=== PATIENT | male | born 1960 | race Caucasian/White ===

== ENCOUNTER → 2020-08-15 13:23 | Outpatient (CLI) | payer OTHER, SELFPAY ==
--- NOTE | ~2020-08-15 | US_ITS ---
EXAMINATION: US venous doppler LE RT DATE: 08/15/2020 13:43 INDICATION: Right lower limb pain and swelling. TECHNIQUE: Grayscale ultrasound images without and with compression and Doppler ultrasound images of the right lower extremity veins were obtained. COMPARISON: None. FINDINGS: The visualized portions of right common femoral vein, profunda (deep) femoral vein, femoral vein, pop liteal vein, peroneal veins, posterior tibial veins, and greater saphenous vein outflow are patent. T here is a 6.5 x 1.5 x 2.7 cm right calf hematoma. IMPRESSION: 1. No deep venous thrombosis. 2. Right calf hematoma. Reviewed, dictated and finalized at location A. RANCE PLAN SPECIALIST
== END ==
PROVIDERS: PCP Family Medicine; Visit Provider Family Medicine
DX: S80.11XA Contusion of right lower leg, initial encounter (principal); X58.XXXA Exposure to other specified factors, initial encounter
CPT/HCPCS: 93971

== ENCOUNTER → 2021-01-11 00:34 | Outpatient (CLI) | payer OTHER, SELFPAY ==
[2021-01-11 21:55] LABS: SARS-CoV-2 RNA PCR Negative
== END ==
PROVIDERS: PCP Family Medicine; Visit Provider Family Medicine
DX: R09.81 Nasal congestion (principal); Z20.822 Contact with and (suspected) exposure to COVID-19
CPT/HCPCS: C9803; U0003; U0005

== ENCOUNTER → 2023-01-11 14:33 | Outpatient (CLI) | payer OTHER, SELFPAY ==
--- NOTE | ~2023-01-11 | XR_ITS ---
EXAM: XR cervical spine 4-5V DATE: 01/11/2023 15:03 HISTORY: M54.2 - Cervicalgia . COMPARISON: None available. FINDINGS: Craniocervical association and atlantoaxial joint are aligned. Mild degenerative change at the atlantoaxial joint. No prevertebral soft tissue swelling. Vertebral bodies are aligned. Vertebra l body heights are maintained. Disc space narrowing and marginal osteophytosis at all cervical levels , moderate at C4-5 through C6-7. Moderate and severe neural foraminal narrowing at all imaged levels. Multilevel moderate facet hypertrophy and sclerosis. IMPRESSION: Multilevel cervical degenerative disc disease, moderate at C4-5 through C6/7. Multilevel moderate and severe degrees of neural foraminal narrowing at all imaged levels. Multilevel moderate cervical facet arthropathy. Reviewed, dictated and finalized at location K. IMPRESSION: Multilevel cervical degenerative disc disease, moderate at C4-5 through C6/7. Multilevel moderate and severe degrees of neural foraminal narrowing at all lia ged levels. Multilevel moderate cervical facet arthropathy.
== END ==
PROVIDERS: PCP Physician Assistant; Visit Provider Physician Assistant
DX: M50.323 Other cervical disc degeneration at C6-C7 level (principal)
CPT/HCPCS: 72050

== ENCOUNTER 2023-05-24 15:11 | Outpatient (CLI) | payer OTHER, SELFPAY ==
--- NOTE | ~2023-05-24 | XR_ITS ---
XR lumbar spine min 4V 05/24/2023 15:45 Indication: Low back pain. Procedure: 5 views lumbar spine Comparison: No prior studies Findings: There is disc narrowing at all lumbar levels. There is straightening of lumbar lordosis. Th ere is advanced multilevel facet hypertrophy. No acute fracture, subluxation or dislocation. There ar e prominent ventral osteophytes at multiple levels. Sacral foramen are symmetric. There are degenerat yolis changes of the sacroiliac joints. Impression: 1: Severe lumbar spondylosis. Reviewed, dictated and finalized at location A. ICAL ENGRAVER Impression: 1: Severe lumbar spondylosis.
--- NOTE | ~2023-05-24 | XR_ITS ---
XR sacrum coccyx min 2V 05/24/2023 15:44 Indication: Myalgias. Procedure: 3 views of the sacrum/coccyx Comparison: No prior studies for comparison. Findings: There is advanced lower lumbar spondylosis. There are degenerative changes of the sacroilia c joints, right greater than left. No fracture or traumatic malalignment. There is osteitis pubis. 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 2: No acute abnormality of the sacrum/coccyx. Reviewed, dictated and finalized at location A. 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 2: No acute abnormality of the sacrum/coccyx.
== END 2023-05-24 15:12 ==
PROVIDERS: PCP Physician Assistant; Visit Provider Physician Assistant
DX: M79.18 Myalgia, other site (principal); M47.896 Other spondylosis, lumbar region
CPT/HCPCS: 72110; 72220

== ENCOUNTER 2024-12-03 17:21 | Emergency (ER) | payer OTHER, MEDICARE, SELFPAY ==
[2024-12-03] VITALS (7 sets, daily range): BP systolic 120–151; BP diastolic 71–99; PULSE 82–99; RESP 17–22; TEMP 37.3; O2SAT 94–98
[2024-12-03] MEDS: TETANUS,DIPHTHERIA,AC PERTUSSIS ADULT (0.5 ML) BOOSTRIX IM (18:20)
--- NOTE | 2024-12-03 18:29 | ED_ITS ---
HPI - Wound/Laceration General Chief Complaint: Wound/Laceration Stated Complaint: 2 in lac on leg Time Seen by Provider: 12/03/24 17:24 Source: patient Mode of arrival: EMS Limitations: no limitations History of Present Illness HPI narrative: Patient is a 64 y/o male who presents to the ED via EMS with report of a laceration to his R lower leg. Patient reports he was attempting to move a metal shelving unit when he tripped and fell. The shelving unit landed on his right leg and caused a large laceration to his right lateral lower leg. Patient denies any other injuries. Denies head injury or LOC. He was able to bear weight on his right leg. Denies numbness. Tetanus status unknown. Related Data Home Medications ?Medication ?Instructions ?Recorded ?Confirmed ?Last Taken ?Type ibuprofen 800 mg tablet 800 mg PO ONCE 01/11/23 02/11/24 Unknown History Allergies Allergy/AdvReac Type Severity Reaction Status Date / Time Penicillins AdvReac Unknown NAUSEA, Verified 12/03/24 17:27 LIGHTHEADEDNESS Review of Systems Review of Systems: All systems reviewed & are unremarkable except as noted in HPI. All systems reviewed & are unremarkable except as noted in HPI and below PMFSH Past Medical History Medical History Low testosterone Type 2 diabetes mellitus without complications History of pleural effusion due to pneumonia Osteoarthritis Hyperlipidemia Hypertension Surgical History Surgical History History of mastectomy gynecomastia 1984 Hx of repair of left rotator cuff Family History Family History Father Family history of heart disease in male family member before age 55 Heart disease Hypertension Mother Hypertension Kidney malignant neoplasm Social History Social History Smoking status: Never smoker Alcohol intake: current Substance use: never Substance use type: does not use Lack of Transportation: No Lack of Food: Never True Current Housing: I Have Housing Concerned About Future Housing: No Difficulty Paying Gas/Electric Bills: No Difficulty Paying for Meds: No Currently Unemployed: No Education: Trade/Vocational Certificate Difficulty w/ Childcare or Family Care: No Living arrangements: with family Occupation/Education: occupation Gender identity (if verbalized by the patient): Male Sexual Orientation (if Verbalized by the Patient): Straight or Heterosexual Exam Narrative: GENERAL: Well appearing, well-nourished, non-toxic, in no acute distress. HEAD: Normocephalic, atraumatic. RESPIRATORY: Airway patent, respirations nonlabored. CARDIOVASCULAR: Regular rate and rhythm. Pedal pulses are intact and easily palpable. MUSCULOSKELETAL: Moves all extremities. No gross deformities. SKIN: Warm, dry, normal color. approx 8cm curvilinear laceration to R lateral lower leg. Hematoma formation present beneath laceration. Several areas of active persistent oozing. NEURO: A&O X3. Speech clear. Cranial nerves II-XII grossly intact. Steady gait. No ataxic movements. PSYCHIATRIC: Appropriate mood and affect. Normal interaction. Course Vital Signs Vital signs: Vital Signs Temperature 99.1 F 12/03/24 17:22 Pulse Rate 91 12/03/24 17:22 Respiratory Rate 21 H 12/03/24 17:22 Blood Pressure 120/71 12/03/24 17:22 Pulse Oximetry 95 12/03/24 17:22 Oxygen Delivery Room Air 12/03/24 17:22 Temperature 99.1 F 12/03/24 17:22 Pulse Rate 85 12/03/24 19:31 Respiratory Rate 18 12/03/24 19:31 Blood Pressure 125/94 H 12/03/24 19:31 Pulse Oximetry 95 12/03/24 19:31 Oxygen Delivery Room Air 12/03/24 17:22 Procedures Laceration Laceration 1: Date: 12/03/24 Time: 19:30 Site: lower extremity Side (If applicable): right Size (cm): 8 Description: linear Depth: simple, single layer Local Anesthetic: lidocaine 1% and with epi Amount of anesthesia used (mL): 15 Pre-repair: wound explored, irrigated and irrigated extensively ====== Skin Level ====== Skin layer closed with: nylon Size (cm): 3-0 and 4-0 Number of sutures: 17 Technique: simple, interrupted ====== Subcutaneous Layer ====== ====== Muscle Layer ====== ====== Tendon Layer ====== MDM - Wound/Laceration MDM Narrative Medical decision making narrative: Large laceration to right lateral lower leg with active bleeding, large hematoma. Lidocaine with epinephrine used. Laceration was repaired without complications, though patient did have persistent oozing/bleeding afterwards. TXA soaked gauze applied with pressure dressing. On re-evaluation, hemostasis was achieved. Will keep pressure dressing on for home. Patient advised to stay off leg as much as possible for 24 hours. Elevated leg above level of heart. Given further wound care instructions and reasons to return. Will start on Keflex for antibiotic prophylaxis. Tetanus updated in the ED. Patient in agreement with plan. Feels comfortable going home. Discharged in stable condition. Medical Records Attestation: I reviewed the patient's medical records. Discharge Plan Discharge Clinical Impression: Laceration of right lower leg Qualifiers: Encounter type: initial encounter Qualified Code(s): S81.811A - Laceration without foreign body, right lower leg, initial encounter Patient Disposition: Home Condition: Stable Instructions: Antibiotic Form, Laceration (ED), Chronic Wounds (ED) Additional Instructions: Take antibiotics as prescribed for protection against infection. Keep off leg as much as possible over next 24 hours. Keep leg elevated above the level of your heart. Change bandage daily. Keep constant pressure on wound for at least 30 minutes if bleeding recurs. Recommend following up with primary care doctor for wound care check within the next 1 week. Your stitches will need to be removed in 10-14 days. Patient Language: Portuguese Prescriptions: New cephalexin 500 mg capsule 500 mg PO Q6H 7 Days Qty: 28 0RF No Action ibuprofen 800 mg tablet 800 mg PO ONCE amlodipine 5 mg tablet 5 mg PO DAILY Qty: 90 1RF carvedilol 12.5 mg tablet See Rx Instructions .ROUTE .COMPLEX Qty: 180 1RF Dose Instruction: TAKE 1 TABLET BY MOUTH TWICE A DAY Rx Instructions: TAKE 1 TABLET BY MOUTH TWICE A DAY lisinopril-hydrochlorothiazide 20-12.5 mg tablet See Rx Instructions .ROUTE .COMPLEX Qty: 90 1RF Dose Instruction: TAKE 1 TABLET BY MOUTH EVERY DAY Rx Instructions: TAKE 1 TABLET BY MOUTH EVERY DAY (DME) BD Eclipse Luer-Precious 3 mL 23 x 1 syringe See Rx Instructions .ROUTE Qty: 50 0RF Rx Instructions: As directed (DME) BD Luer-Precious Syringe 3 mL 23 x 1 syringe See Rx Instructions .ROUTE .COMPLEX Qty: 12 2RF Dose Instruction: USE EVERY TWO WEEKS INTRAMUSCULARLY FOR TESTOSTERONE SHOTS Rx Instructions: USE EVERY TWO WEEKS INTRAMUSCULARLY FOR TESTOSTERONE SHOTS metformin 500 mg tablet See Rx Instructions .ROUTE .COMPLEX Qty: 360 1RF Dose Instruction: TAKE 2 TABLETS BY MOUTH TWICE A DAY Rx Instructions: TAKE 2 TABLETS BY MOUTH TWICE A DAY testosterone cypionate 200 mg/mL oil 400 mg IM .every two weeks 30 Days Qty: 4 3RF sildenafil 100 mg tablet 100 mg PO DAILY PRN (Reason: sexual activity) Qty: 34 0RF Rx Instructions: administer 30 minutes to 4 hours before activity Jardiance 25 mg tablet 25 mg PO DAILY Qty: 30 5RF azithromycin 250 mg tablet See Rx Instructions PO .COMPLEX Qty: 6 0RF Rx Instructions: For 250 mg dose pack: take 500 mg today (day 1), then 250 mg for 4 days (days 2-5) PO simvastatin 20 mg tablet 20 mg PO DAILY Qty: 90 1RF Follow-up/Referrals: Brad,Ricardo Park MD [Primary Care Provider] - Time of Disposition: 20:43
[2024-12-03] MEDS: HYDROcodone/acetaminophen (*CRX) 5-325 MG TABLET 1 TAB PO (20:50)
== END 2024-12-03 20:53 | disposition home or self-care (01) ==
PROVIDERS: Emergency Provider Physician Assistant; PCP Internal Medicine Endocrinology, Diabetes & Metabolism
DX: S81.811A Laceration without foreign body, right lower leg, initial encounter (principal); E11.9 Type 2 diabetes mellitus without complications; M19.90 Unspecified osteoarthritis, unspecified site; E78.5 Hyperlipidemia, unspecified; I10 Essential (primary) hypertension; W20.8XXA Other cause of strike by thrown, projected or falling object, initial encounter; Z23 Encounter for immunization
CPT/HCPCS: 12004; 90715; 99283; A9270

== ENCOUNTER 2024-12-18 13:50 | Emergency (ER) | payer OTHER, SELFPAY ==
[2024-12-18 13:58] VITALS: BP 137/80; PULSE 96; RESP 18; TEMP 36.4; O2SAT 99
--- NOTE | 2024-12-18 14:11 | ED.WOUNDLAC ---
HPI - Wound/Laceration General Chief Complaint: Wound/Laceration Stated Complaint: Wound Check Time Seen by Provider: 12/18/24 14:15 Source: patient Mode of arrival: ambulatory Limitations: no limitations History of Present Illness HPI narrative: 64-year-old diabetic male with history of diabetes and neuropathy presented for wound check. Endorses swelling from the wound extending to the ankle. Patient states the wound has continued to bleed since sutures were placed. Patient had sutures removed 4 days ago, which was day 11. Pt completed abx as prescribed. At time of suture removal, pt was prescribed another antibiotic. Says he has tried to elevate and ice the leg. pt denies any pain, redness, or purulent drainage, n/v/f/c. Pt applied NuSkin to the site yesterday and this morning. Pt reports concern due to a pending spinal surgery next week. Related Data Home Medications ?Medication ?Instructions ?Recorded ?Confirmed ?Last Taken ?Type ibuprofen 800 mg tablet 800 mg PO ONCE 01/11/23 02/11/24 Unknown History sulfamethoxazole 800 tablet 12/18/24 Unknown History mg-trimethoprim 160 mg tablet Allergies Allergy/AdvReac Type Severity Reaction Status Date / Time Penicillins AdvReac Unknown NAUSEA, Verified 12/18/24 14:14 LIGHTHEADEDNESS Review of Systems Review of Systems: CONSTITUTIONAL: Denies body aches, fever, chills, or sweats. EYES: Denies visual changes, redness, or discharge. ENT: Denies rhinorrhea, congestion CARDIOVASCULAR: Denies chest pain, palpitations, or edema. RESPIRATORY: Denies cough or dyspnea. GASTROINTESTINAL: Denies abdominal pain, nausea, vomiting, or diarrhea. SKIN: per HPI MUSCULOSKELETAL: Denies back pain, joint pain, or myalgia. NEUROLOGIC: Denies headache, numbness, tingling, or weakness. [facility] Past Medical History Medical History Low testosterone Type 2 diabetes mellitus without complications History of pleural effusion due to pneumonia Osteoarthritis Hyperlipidemia Hypertension Surgical History Surgical History History of mastectomy gynecomastia 1984 Hx of repair of left rotator cuff Family History Family History Father Family history of heart disease in male family member before age 55 Heart disease Hypertension Mother Hypertension Kidney malignant neoplasm Social History Social History Smoking status: Never smoker Alcohol intake: current Substance use: never Substance use type: does not use Lack of Transportation: No Lack of Food: Never True Current Housing: I Have Housing Concerned About Future Housing: No Difficulty Paying Gas/Electric Bills: No Difficulty Paying for Meds: No Currently Unemployed: No Education: Trade/Vocational Certificate Difficulty w/ Childcare or Family Care: No Living arrangements: with family Occupation/Education: occupation Gender identity (if verbalized by the patient): Male Sexual Orientation (if Verbalized by the Patient): Straight or Heterosexual Comments At time of signature, I have reviewed and agree with nursing past medical, surgical, social and family history unless otherwise noted. Please see nursing chart for further information. There is no relevant family history pertinent to the presenting complaint Exam Narrative: GENERAL: Well-appearing EYES: conjunctivae clear, and EOMI. ENT: Mucous membranes moist. Oropharynx without edema, erythema or lesions. CHEST: Clear to auscultation. HEART: Regular rate and rhythm. SKIN: Warm, dry. Right lateral lower leg with 7 cm crescent shaped healing laceration, approx 3cm center remains unapproximated. No active bleeding at this time. Minimally tender. No induration or cellulitis noted. Right lower leg swelling 2+ noted extending to foot. Negative homans sign. NEURO: Alert and oriented x3. Course Course Emergency Course: Patient is aware of diagnosis, understands and agrees to treatment plan. Anticipatory guidance given. Patient agrees to follow-up as directed and is aware of reasons to seek care at the emergency department. Portions of this record may have been created with voice recognition software Level of Care: Express Care Visit Vital Signs Vital signs: Vital Signs Temperature 97.5 F L 12/18/24 13:58 Pulse Rate 96 12/18/24 13:58 Respiratory Rate 18 12/18/24 13:58 Blood Pressure 137/80 12/18/24 13:58 Pulse Oximetry 99 12/18/24 13:58 Oxygen Delivery Room Air 12/18/24 13:58 Temperature 97.5 F L 12/18/24 13:58 Pulse Rate 96 12/18/24 13:58 Respiratory Rate 18 12/18/24 13:58 Blood Pressure 137/80 12/18/24 13:58 Pulse Oximetry 99 12/18/24 13:58 Oxygen Delivery Room Air 12/18/24 13:58 Reviewed MDM - Wound/Laceration MDM Narrative Medical decision making narrative: Pt presented with nonhealing leg laceration following suture removal on 12/14, also with leg edema. 7cm curvilinear laceration with 3cm unapproximated at center. No active bleeding at this time. Removed nu skin. Contacted Dr Carlos precision agriculture technician, who advised consult and follow up with Wound Care. Spoke with Wound Care who advised Silver Gel, dressing, and compression. Pt will need referral for f/u. Wound cleansed, gauze dressing applied with coban. Discussed physical exam findings. Advised supportive measures and signs/symptoms to go to the ER. Pt is appropriate for outpt treatment and f/u. Differential Diagnosis Differential diagnosis: Likely laceration, abscess, abrasion and avulsion of skin Discharge Plan Discharge Clinical Impression: Non-healing wound of lower extremity Patient Disposition: Home Condition: Stable Instructions: Antibiotic Form, Wound Healing and Your Diet (ED) Additional Instructions: cleanse daily with warm water and mild soap and allow to fully dry. Apply over the counter Silver Gel to the wound (about a pea sized amount). Then apply a gauze dressing over the site. Compression stocking to the right leg to reduce the swelling. Please contact your PCP today for a referral to Wound Care. Continue the antibiotic as previously prescribed Recommend contacting your surgeon to update them. Watch for worsening symptoms including pain, redness, swelling, streaking, pus/drainage, fever. Go to the ER with any of these symptoms or concerns. Follow up with primary care provider in 1 week as needed. Patient Language: Azeri Prescriptions: No Action sulfamethoxazole-trimethoprim 800-160 mg tablet ibuprofen 800 mg tablet 800 mg PO ONCE amlodipine 5 mg tablet 5 mg PO DAILY Qty: 90 1RF carvedilol 12.5 mg tablet See Rx Instructions .ROUTE .COMPLEX Qty: 180 1RF Dose Instruction: TAKE 1 TABLET BY MOUTH TWICE A DAY Rx Instructions: TAKE 1 TABLET BY MOUTH TWICE A DAY lisinopril-hydrochlorothiazide 20-12.5 mg tablet See Rx Instructions .ROUTE .COMPLEX Qty: 90 1RF Dose Instruction: TAKE 1 TABLET BY MOUTH EVERY DAY Rx Instructions: TAKE 1 TABLET BY MOUTH EVERY DAY (DME) BD Eclipse Luer-Precious 3 mL 23 x 1 syringe See Rx Instructions .ROUTE Qty: 50 0RF Rx Instructions: As directed (DME) BD Luer-Precious Syringe 3 mL 23 x 1 syringe See Rx Instructions .ROUTE .COMPLEX Qty: 12 2RF Dose Instruction: USE EVERY TWO WEEKS INTRAMUSCULARLY FOR TESTOSTERONE SHOTS Rx Instructions: USE EVERY TWO WEEKS INTRAMUSCULARLY FOR TESTOSTERONE SHOTS metformin 500 mg tablet See Rx Instructions .ROUTE .COMPLEX Qty: 360 1RF Dose Instruction: TAKE 2 TABLETS BY MOUTH TWICE A DAY Rx Instructions: TAKE 2 TABLETS BY MOUTH TWICE A DAY testosterone cypionate 200 mg/mL oil 400 mg IM .every two weeks 30 Days Qty: 4 3RF sildenafil 100 mg tablet 100 mg PO DAILY PRN (Reason: sexual activity) Qty: 34 0RF Rx Instructions: administer 30 minutes to 4 hours before activity Jardiance 25 mg tablet 25 mg PO DAILY Qty: 30 5RF simvastatin 20 mg tablet 20 mg PO DAILY Qty: 90 1RF Follow-up/Referrals: Brad,Ricardo Park MD [Primary Care Provider] - Time of Disposition: 15:29
== END 2024-12-18 15:37 | disposition home or self-care (01) ==
PROVIDERS: Emergency Provider Nurse Practitioner Family; PCP Internal Medicine Endocrinology, Diabetes & Metabolism
DX: T81.89XA Other complications of procedures, not elsewhere classified, initial encounter (principal); S81.811A Laceration without foreign body, right lower leg, initial encounter; X58.XXXA Exposure to other specified factors, initial encounter; E11.42 Type 2 diabetes mellitus with diabetic polyneuropathy; Z79.84 Long term (current) use of oral hypoglycemic drugs; I10 Essential (primary) hypertension; E78.5 Hyperlipidemia, unspecified; M19.90 Unspecified osteoarthritis, unspecified site
CPT/HCPCS: 99212; G0463